=== PATIENT | female | born 1950 | race Caucasian/White ===

== ENCOUNTER → 2024-08-06 06:42 | Outpatient (REF) | payer MEDICARE, SELFPAY | LOC: WDC 06:42 | PROVIDERS: ATTENDING PHYSICIAN Radiology Radiation Oncology; FAMILY PHYSICIAN Family Medicine | DX: Z12.31 Encounter for screening mammogram for malignant neoplasm of breast (principal) | CPT/HCPCS: 77063; 77067 ==

== ENCOUNTER → 2025-08-11 07:32 | Outpatient (REF) | payer MEDICARE, SELFPAY | LOC: WDC 07:32 | PROVIDERS: ATTENDING PHYSICIAN Radiology Radiation Oncology; FAMILY PHYSICIAN Family Medicine | DX: Z12.31 Encounter for screening mammogram for malignant neoplasm of breast (principal); Z85.3 Personal history of malignant neoplasm of breast | CPT/HCPCS: 77063; 77067 ==